=== PATIENT | female | born 1980 | race American Indian/Alaskan Native ===

== ENCOUNTER 2016-07-30 20:05 | Emergency (ER) | payer MEDICAID ==
[2016-07-30 20:06] VITALS: BMI 29.2
[2016-07-30 21:19] VITALS: RESP 18; TEMP 98.5; O2SAT 97
[2016-07-30] MEDS ORDERED: Naproxen 500 MG TAB PO ONE ×2 (22:34→23:08)
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
[2016-07-30 23:29] VITALS: BP 115/60; PULSE 89
== END 2016-07-30 23:28 | disposition home or self-care (01) ==
LOC: H.ER 20:05
DX: S09.93XA Unspecified injury of face, initial encounter (principal); Y04.0XXA Assault by unarmed brawl or fight, initial encounter; Y92.89 Other specified places as the place of occurrence of the external cause; F41.9 Anxiety disorder, unspecified; J45.909 Unspecified asthma, uncomplicated